=== PATIENT | female | born 1940 | race Caucasian/White ===

== ENCOUNTER 2019-07-13 08:22 | Inpatient (IN) | payer MEDICARE, BC ==
[~2019-07-13] VITALS: Ht 177.8 cm; Wt 66.2 kg
[~2019-07-13 08:22] MED LIST: ASPIR 8181 MG PO; CALCIUM 500 +1 EAC5 PO; CETIRIZINE HCL5 MG PO; DIAZEPAM2 MG PO; FISH OIL 1,0001 EAC8 PO; HYDROCODONE-AP1 EAC6 PO; NAPROSYN500 MG PO; NORCO 5-325 TA1 EACH PO; VITAMIN D1000 UNI1 PO; ZOCOR20 MG PO
[2019-07-13 08:25] VITALS: BP 121/67
[2019-07-13 09:06] LABS: HEMATOCRIT 36.3 % (37.0-47.0); HEMOGLOBIN 12.4 gm/dL (12.0-15.0); MCH 32.1 pg (26.0-34.0); MCHC 34.2 g/dL (28.0-37.0); MCV 93.8 fL (80.0-100.0); MPV 8.3 fl. (7.2-11.1); NUCLEATED RBCS 0 /100WBC; PLATELET COUNT* 143 thou/uL (150-400); RBC 3.87 mil/uL (4.20-5.00); RDW-CV 13.3 % (10.5-14.5); WBC 14.8 thou/uL (4.0-11.0)
[2019-07-13 09:10] LABS: URINE BILIRUBIN NEGATIVE (Negative); URINE BLOOD 1+ (Negative); URINE CLARITY CLEAR; URINE COLOR DARK YELLOW; URINE GLUCOSE-RANDOM NEGATIVE (Negative); URINE KETONES TRACE (Negative); URINE LEUKOCYTES-REFLEX TRACE (Negative); URINE NITRITE-REFLEX NEGATIVE (Negative); URINE PROTEIN TRACE (Negative); URINE SPECIFIC GRAVITY 1.025 (1.005-1.030); URINE UROBILINOGEN 0.2 E.U./dl (0.2-1.0)
[2019-07-13 09:10] LABS: ANION GAP 10 mmol/L (7-16); BUN 20 mg/dL (7-18); CALCIUM 8.8 mg/dL (8.5-10.1); CHLORIDE 101 mmol/L (98-107); CO2 25 mmol/L (21-32); CREATININE 0.9 mg/dL (0.6-1.3); GLUCOSE 123 mg/dL (70-99); POTASSIUM 3.2 mmol/L (3.5-5.1); SODIUM 136 mmol/L (136-145)
[2019-07-13 09:19] LABS: ALBUMIN 3.5 g/dL (3.4-5.0); ALKALINE PHOSPHATASE 55 U/L (46-116); LIPASE 54 U/L (73-393); SGOT 16 U/L (15-37); SGPT 19 U/L (30-65); TOTAL BILIRUBIN 1.5 mg/dL (<0.1-1.0); TOTAL PROTEIN 6.7 g/dL (6.4-8.2); TROPONIN-I LEVEL <0.06 ng/mL (<0.06)
[2019-07-13 09:21] LABS: SQUAMOUS 0-3 Few /LPF (0-3); URINE WBC-REFLEX 0-5 Rare /HPF (0-5)
[2019-07-13 09:22] LABS: FINE GRANULAR CASTS 0-3 Few /LPF (None Seen); HYALINE CASTS 4-10 Moderate /LPF (None Seen); MUCUS >6 Heavy strn/LPF (None Seen); URINE RBC 0-2 Rare /HPF (0-2)
[2019-07-13 09:23] LABS: CRYSTALS None Seen /LPF (None Seen)
[2019-07-13 09:53] LABS: ABSOLUTE LYMPHOCYTES 1.3 thou/uL (0.8-5.3); ABSOLUTE MONOCYTES 0.3 thou/uL (0.0-1.2); ABSOLUTE NEUTROPHILS 13.2 thou/uL (1.6-8.1); ATYPICAL LYMPHS 1 %; PLATELET ESTIMATE DECREASED
--- NOTE | 2019-07-13 12:48 | EKG ---
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 07/13/19 1248 0835 0835 Kian Agustin MD, FACC /EPI
[2019-07-13 12:56] VITALS: BP 100/61
[2019-07-13 19:16] VITALS: BP 107/48
--- NOTE | 2019-07-13 19:27 | NUR ---
PATIENT ARRIVED TO UNIT AT 1820 FROM PACU. ALERT AND ORIENTED X4. VSS ON ROOM AIR. NO COMPLAINT OF PAIN UPON ARRIVAL. ORIENTED PATIENT AND FAMILY TO ROOM AND UNIT. ADMISSION HISTORY AND ASSESSMENT COMPLETED AND CHARTED. CALL LIGHT PLACED IN REACH. WILL CONTINUE TO MONITOR.
[2019-07-13 20:00] VITALS: BP 96/42
[2019-07-14] VITALS: BP 114/57
[2019-07-14 04:00] VITALS: BP 109/50
--- NOTE | 2019-07-14 06:26 | NUR ---
ASSUMED PT CARE AT 1930. PT ALERT AND ORIENTED X4. VSS ON R/A. DENIES PAIN. LAP SITES X3 TO ABDOMEN DRY AND EDY. IV FLUIDS INFUSING PER ORDERS. PT UP WITH SBA TO VOID. PT SLEPT WELL OVERNIGHT. CALL LIGHT IN REACH. HOURLY ROUDING COMPLETED.
[2019-07-14 09:15] VITALS: BP 106/61
--- NOTE | 2019-07-14 19:00 | NUR ---
PATIENT PLEASANT AND COOPERATIVE THRU SHIFT. KEITH CLR TO FULL LIQ DIET. PATIENT STATES HAVING DISCOMFORT IN RT SHOULDER, PATIENT ENC OOB AND AMBULATE TO REDUCE GAS PRESSURE. NO BM THIS SHIFT REPORTED. PATIENT AMB IN [place] W/ NURSING X1 PRESENT. STEADY GAIT. UP TO RECLINER THIS AFTERNOON AFTER AMBULATION. FAMILY MEMBERS IN PERIODICALLY THRU SHIFT. CALL LIGHT IN REACH. HRLY ROUNDS DONE.
[2019-07-14 20:00] VITALS: BP 150/62
[2019-07-15] VITALS: BP 133/58
[2019-07-15 03:54] LABS: ABSOLUTE LYMPHOCYTES 0.6 thou/uL (0.8-5.3); ABSOLUTE MONOCYTES 0.4 thou/uL (0.0-1.2); ABSOLUTE NEUTROPHILS 9.2 thou/uL (1.6-8.1); BASOPHILS 0.1 %; EOSINOPHILS 0.1 %; HEMATOCRIT 29.7 % (37.0-47.0); LYMPHOCYTES 5.6 %; MCH 32.5 pg (26.0-34.0); MCHC 34.5 g/dL (28.0-37.0); MCV 94.3 fL (80.0-100.0); MONOCYTES 4.2 %; MPV 9.3 fl. (7.2-11.1); NUCLEATED RBCS 0 /100WBC; PLATELET COUNT* 123 thou/uL (150-400); RBC 3.15 mil/uL (4.20-5.00); RDW-CV 13.5 % (10.5-14.5); WBC 10.2 thou/uL (4.0-11.0)
[2019-07-15 04:00] VITALS: BP 116/56
[2019-07-15 04:10] LABS: HEMOGLOBIN 10.2 gm/dL (12.0-15.0)
[2019-07-15 04:21] LABS: ALBUMIN 2.4 g/dL (3.4-5.0); CALCIUM 8.1 mg/dL (8.5-10.1); CREATININE 0.7 mg/dL (0.6-1.3); MAGNESIUM 1.8 mg/dL (1.8-2.4); PHOSPHORUS* 1.8 mg/dL (2.5-4.9); POTASSIUM 3.6 mmol/L (3.5-5.1)
--- NOTE | 2019-07-15 06:01 | NUR ---
Alert and oriented x 4. She's up with stand by assist to the bathroom and has voided adequately. Vitals have been stable. She has been having pain in her rt ribs and rt shoulder/chest. It sounded more like gas pain. She stated that she has walked in the halls. Last evening she hadn't passed gas but she has since then. Dr Ho did order simethicone,EKG and troponin. EKG was unchaned from previous EKG and troponin was normal. Simethicone did help. Vitals are stable she has slept well.
[2019-07-15 09:00] VITALS: BP 119/49
[2019-07-15 15:57] VITALS: BP 123/67
--- NOTE | 2019-07-15 17:55 | NUR ---
ASSUMED CARE OF PATIENT AT APPROX 1300. REPORT RECIEVED FROM BERNICE IBARRA. PATIENT ALERT AND ORIENTED X4. MINIMAL COMPLAINT OF PAIN. AMBULATING HALLWAYS WITH FAMILY. TOLERATING LIQUID DIET AND ASKED TO HAVE HER DIET ADVANCED. JE PAGED AND ORDER GIVEN FOR REGULAR DIET. PATIENT TOLERATED REGULAR DINNER WITH NO COMPLAINTS OF NAUSEA. FLUIDS INFUSED ORDERED. HOURLY ROUNDS COMPLETED. CALL LIGHT WITHIN REACH. WILL CONTINUE TO MONITOR.
[2019-07-15 20:00] VITALS: BP 149/69
[2019-07-16] VITALS: BP 119/59
[2019-07-16 04:00] VITALS: BP 147/73
--- NOTE | 2019-07-16 05:54 | NUR ---
Alert and oriented x 4. Lapsites x 3 are intact approximated with dermabond. She has had pain meds x 1 this shift. Vitals are stable. She is up independently to the bathroom. Dayshift nurse spoke with Dr Isaac yesterday and he said she could be saline locked and the LR could be discontinued. She has slept well this shift.
[2019-07-16 07:53] VITALS: BP 153/69
[2019-07-16 17:07] VITALS: BP 142/69
--- NOTE | 2019-07-16 17:44 | NUR ---
ASSESSMENTS COMPLETED, PT A&OX4, PAIN ASSESSED AND PAIN MEDS GIVEN ORDERED, HOURLY ROUNDING COMPLETED, SURGICAL SITES ASSESSESED, FALL PRECAUTIONS MAINTAINED. WILL CONTINUE TO MONITOR.
[2019-07-16 20:00] VITALS: BP 148/62
[2019-07-17 04:17] LABS: ALBUMIN 2.2 g/dL (3.4-5.0); CALCIUM 8.5 mg/dL (8.5-10.1); CREATININE 0.7 mg/dL (0.6-1.3); PHOSPHORUS* 4.1 mg/dL (2.5-4.9); POTASSIUM 3.4 mmol/L (3.5-5.1)
[2019-07-17 04:28] LABS: HEMATOCRIT 31.3 % (37.0-47.0); HEMOGLOBIN 10.7 gm/dL (12.0-15.0); MCHC 34.3 g/dL (28.0-37.0); MCV 93.2 fL (80.0-100.0); MPV 8.2 fl. (7.2-11.1); RBC 3.36 mil/uL (4.20-5.00); RDW-CV 13.4 % (10.5-14.5); WBC 6.9 thou/uL (4.0-11.0)
--- NOTE | 2019-07-17 05:35 | NUR ---
PATIENT SLEPT WELL DURING THIS SHIFT. PT UP WITH STANDBY TO BATHROOM. PT WITH SCHEDULED TYLENOL AND IBRUPROFEN; DID NOT ASK FOR PAIN MEDS OTHER THAN WHEN ORDERED. PT WITH THREE LAP SITES C/D/I. PT DENIES NEEDS AT THIS TIME. FREQUENTLY USED ITEMS AND CALL LIGHT WITHIN REACH. SIDERAILS UPX2. WILL CONTINUE TO MONITOR.
[2019-07-17 07:14] VITALS: BP 150/60
--- NOTE | 2019-07-17 10:09 | NUR ---
THIS NURSE AGREES WITH MORNING ASSESSMENT FROM [facility]. WILL CONTINUE TO MONITOR.
[2019-07-17] MEDS ORDERED: METRONIDAZOLE500 M4 PO (10:37)
[2019-07-17] MEDS ORDERED: OXYCODONE HCL 55 MG PO (10:37)
[2019-07-17] MEDS ORDERED: CEFDINIR300 MG PO (10:37)
[2019-07-17] MEDS ORDERED: PAIN RELIEVER500 MG PO (10:38)
[2019-07-17 10:59] VITALS: BP 150/60
--- NOTE | 2019-07-17 12:13 | NUR ---
SAW PT. SHE IS BEING DISCHARGED TODAY. EXPLAINED ROLE OF CM . SHE SAID SHE LIVES ALONE AND IS INDEPENDENT. DOES NOT USE ANY DME AND NO HX OF HH. FAMILY IS SUPPORTIVE. SHE DENIED ANY DISCHARGE NEEDS.
--- NOTE | 2019-07-17 14:06 | PATH ---
[address] [address] PATHOLOGY RPT PROCEDURE Name: SAMUEL JENNINGS Room: [address] IN .R.#: [id number] Admission: 07/16/19 Date of : 38 Discharge: Report #: [id number] Path Case #: [id number] [facility] Accession Number: [id number] . 01 Material submitted: . appendix - APPENDIX . 01 Clinical history: . Perforated appendicitis . 02 Diagnosis: Appendix: - Acute gangrenous appendicitis, periappendicitis and serositis with evidence of perforation. . (DAIANA:mml; 07/17/2019) [facility] 07/17/2019 1228 Local . 02 Electronically signed: . Sincere Plasencia MD, Pathologist NPI- [id number] . 01 Gross description: . Received in formalin labeled "Drecktrah, Samuel, appendix," is an appendix measuring 3.3 cm in length by up to 0.9 cm in diameter with a small amount of attached mesoappendix measuring up to 0.8 cm in thickness. The appendiceal serosa grossly appears entirely obscured by ewing-brown fibrous adhesions. A possible perforation is noted in the serosa that extends to within 0.7 cm of the proximal margin (inked yellow). The proximal margin is closed with a linear staple line; this area is inked black. Serial sectioning reveals a patent to dilated lumen ranging from 0.2 to 0.6 cm in diameter and filled with dark brown, friable fecal material. The proximal margin, bisected distal tip and possible perforation are submitted in cassette A1. Additional delivery representative sections are submitted in cassette A2. ([facility]; 07/16/2019) XDC/XDC 07/17/2019 122 Local . 02 Pathologist provided ICD-10: K35.80, K65.8 . 02 CPT . 757751 Specimen Comment: A courtesy copy of this report has been sent to Specimen Comment: [phone], . Specimen Comment: Report sent to / DR TABARES Performed at: [address] [place] [address] PATHOLOGY RPT PROCEDURE Name: SAMUEL JENNINGS Room: [address] IN ..#: [id number] Admission: 07/16/19 Date of : 38 Discharge: Report #: [id number] Path Case #: [id number] [address] [facility] [address], [place] [id number] MD Anthony Thurman MD Phone: [phone] Performed at: [address] [facility] [address] [place] Luong [id number] MD Sincere Plasencia MD Phone: [phone]
--- NOTE | 2019-07-17 14:48 | EKG ---
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1940 Requested By: Aroldo Isaac Order Number: [id number] Mat ARAGON: Edgardo Salcido Measurements Intervals [place] Rate: 84 P: 49 [place]: 145 QRS: 29 QRSD: 93 T: 19 QT: 392 QTc: 464 Interpretive Statements Sinus rhythm Atrial premature complex Compared to ECG 07/13/2019 08:35:22 Atrial premature complex(es) now present Prolonged QT interval no longer present Electronically Signed On 07-17-2019 14:48:28 CDT by Edgardo Salcido [email or web address] <ELECTRONICALLY SIGNED> By: Edgardo Salcido MD, [facility] 07/17/19 1448 09 09 Edgardo Salcido MD, [facility] /EPI
[2019-07-17 14:58] VITALS: BP 150/60
--- NOTE | 2019-07-17 14:59 | NUR ---
PT REMAINED ALERT AND ORIENTED. PT GIVEN GIVEN DISCHARGE INFORMATION, CARE NOTES, AND PRESCRIPTIONS. PT BELONGINGS GATHERED. IV REMOVED. PT LEFT VIA WHEELCHAIR WITH NURSING STAFF TO HOME. FALL RISK PRECAUTIONS IN PLACE. HOURLY ROUNDING COMPLETED.
== END 2019-07-17 15:19 | disposition home or self-care (01) | DRG 339 ==
LOC: M.ERS 08:22 → M.SUR 08:22 → M.ERS 12:58 → M.TBA-ER 15:07 → M.ORTHSURG 18:20
PROVIDERS: Emergency Medicine; ADMIT Surgery
PROC: 0DTJ4ZZ Resection of Appendix, Percutaneous Endoscopic Approach (ICD-10-PCS; principal; 2019-07-13)
DX: K35.32 Acute appendicitis with perforation, localized peritonitis, and gangrene, without abscess (principal); R65.10 Systemic inflammatory response syndrome (SIRS) of non-infectious origin without acute organ dysfunction; E44.0 Moderate protein-calorie malnutrition; E78.5 Hyperlipidemia, unspecified; E78.00 Pure hypercholesterolemia, unspecified; Z79.899 Other long term (current) drug therapy; Z79.82 Long term (current) use of aspirin; Z80.0 Family history of malignant neoplasm of digestive organs; Z68.20 Body mass index [BMI] 20.0-20.9, adult